=== PATIENT | male | born 1995 | race Asian ===

== ENCOUNTER 2019-04-04 11:34 | Outpatient (CLI) | payer OTHER ==
[2019-04-04 12:39] LABS: BASOPHILS % (AUTO) 0.5 % (0.0-2.0); EOSINOPHILS # (AUTO) 0.1 K/uL (0.0-0.4); EOSINOPHILS % (AUTO) 3.5 % (0.0-4.0); HEMATOCRIT 42.9 % (36-54); HEMOGLOBIN 14.5 g/dL (14.0-18.0); LYMPHOCYTES # (AUTO) 1.4 K/uL (1.0-5.5); LYMPHOCYTES % (AUTO) 33.5 % (20.5-51.5); MEAN CORPUSCULAR HEMOGLOBIN 31 pg (27-31); MEAN CORPUSCULAR HGB CONC 34 % (32-36); MEAN CORPUSCULAR VOLUME 91 fL (79.0-98.0); MONOCYTES # (AUTO) 0.3 K/uL (0.0-1.0); MONOCYTES % (AUTO) 6.9 % (1.7-9.3); NEUTROPHILS # (AUTO) 2.3 K/uL (1.8-7.7); NEUTROPHILS % (AUTO) 55.6 % (40.0-70.0); PLATELET COUNT (AUTO) 179 K/uL (130-430); RED BLOOD CELL COUNT(AUTO) 4.72 MIL/uL (4.2-6.2); WHITE BLOOD COUNT (AUTO) 4.2 K/uL (4.8-10.8)
[2019-04-04 13:07] LABS: ALBUMIN 3.9 g/dL (3.4-4.8); CREATININE 0.97 mg/dL (0.55-1.30); POTASSIUM 4.4 mmol/L (3.5-5.1); THYROID STIMULATING HORMONE 1.33 uIu/mL (0.34-4.82); TOTAL BILIRUBIN 0.5 mg/dL (0.0-1.0); URIC ACID 7.7 mg/dL (2.4-7.0)
[2019-04-05 06:08] LABS: HEMOGLOBIN A1C 5.4 % (4.8-5.6)
== END 2019-04-04 20:56 | disposition home or self-care (01) ==
LOC: SLB 11:34
PROVIDERS: ATTEND Internal Medicine
DX: Z00.00 Encounter for general adult medical examination without abnormal findings (principal)
CPT/HCPCS: 36415; 80053; 80061; 82306; 82607; 83036; 84443-TC; 84550-TC; 85025

== ENCOUNTER 2020-01-19 16:44 | Emergency (ER) | payer OTHER ==
[~2020-01-19] VITALS: Ht 165.1 cm; Wt 70.3 kg
[2020-01-19 16:44] VITALS: BP_SYST 150
--- NOTE | 2020-01-19 16:44 | NUR ---
BROUGHT BACK TO BED #8 AND TRIAGED. REPORT GIVEN TO PANCHITO
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
--- NOTE | 2020-01-19 17:01 | NUR ---
ER at bedside examining patient.
[2020-01-19] MEDS ORDERED: KETOROLAC TROMETHAMINE 60 MG/2 ML VIAL IM ONE (17:15)
[2020-01-19 17:27] VITALS: BP_SYST 150
--- NOTE | 2020-01-19 17:27 | NUR ---
Patient given written and verbal discharge instructions and verbalizes understanding. ER MD discussed with patient the results and treatment provided. Patient in stable condition. ID arm band removed. Rx of Motrin and [place] given. Patient educated on pain management and to follow up with PMD. Pain Scale 2/10. Opportunity for questions provided and answered. Medication side effect fact sheet provided.
== END 2020-01-19 17:27 | disposition home or self-care (01) ==
LOC: SED 16:44
DX: M54.6 Pain in thoracic spine (principal); V47.5XXA Car driver injured in collision with fixed or stationary object in traffic accident, initial encounter; Y93.89 Activity, other specified; Y92.89 Other specified places as the place of occurrence of the external cause; Y99.8 Other external cause status
CPT/HCPCS: 96372; 99283; J1885